=== PATIENT | male | born 1995 | race African-American/Black ===

== ENCOUNTER 2017-11-08 06:39 | Inpatient (IN) | payer OTHER ==
[2017-11-08] MEDS ORDERED: ceFAZolin 2 GM/D5W 50 ML IV BAG (J0690 PER 500MG) As Ordered (07:15)
[2017-11-08] MEDS ORDERED: LIDOCAINE 1% MDV 20ML VIAL SQ (07:15)
[2017-11-08] MEDS: METHYLENE BLUE 0.5% (5MG/ML) 10 ML AMP (PROVAYBLUE)(Q9968 PER 1MG) As Ordered (07:18)
[2017-11-08] MEDS: LR 1,000 ML IV ×4 (07:19→18:53)
[2017-11-08] MEDS: dexameTHASONE 4 MG/ML 1ML VIAL (J1100) IV ×2 (07:45→16:02)
[2017-11-08] MEDS: OXYMETAZOLINE NASAL SPRAY (AFRIN) As Ordered ×3 (07:48→09:03)
[2017-11-08] MEDS: CHLORHEXIDINE ORAL RINSE 0.12%/15ML 120ML BOTTLE As Ordered (08:30)
[2017-11-08] MEDS ORDERED: LIDOCAINE 2% INJ 100 MG/5 ML SDV (FOR ANES.) As Ordered (08:34)
[2017-11-08] MEDS ORDERED: ONDANSETRON 4MG/2ML VIAL (J2405) As Ordered (08:34)
[2017-11-08] MEDS ORDERED: REMIFENTANIL 1MG 3ML VIAL As Ordered ×3 (08:34→09:10)
[2017-11-08] MEDS ORDERED: ROCURONIUM BROMIDE 50 MG/5 ML VIAL As Ordered ×2 (08:34→09:24)
[2017-11-08] MEDS ORDERED: MIDAZOLAM INJ 2 MG/2 ML VIAL (J2250) As Ordered (08:34)
[2017-11-08] MEDS ORDERED: ePHEDrine SULFATE 25 MG/5 ML(5MG/ML) SYRINGE As Ordered (08:34)
[2017-11-08] MEDS ORDERED: fentaNYL 250 MCG/5 ML INJECTION (J3010) As Ordered (08:34)
[2017-11-08] MEDS ORDERED: PROPOFOL 200 MG/20 ML VIAL As Ordered (08:34)
[2017-11-08] MEDS ORDERED: HYDROmorphone HCL 2 MG/ML 1ML VIAL (J1170) As Ordered (08:45)
[2017-11-08] MEDS ORDERED: GLYCOPYRROLATE INJ 0.2 MG/ML 2 ML VIAL As Ordered ×2 (09:14)
[2017-11-08] MEDS ORDERED: NEOSTIGMINE 10 MG/10 ML VIAL (J2710) As Ordered (09:14)
[2017-11-08] MEDS: LIDOCAINE 2% W/ EPINEPHRINE 1.7 ML DENTAL INJ As Ordered ×2 (10:59)
[2017-11-08] MEDS ORDERED: MORPHINE 10 MG/ML 1ML VIAL (J2270) IV (11:30)
[2017-11-08] MEDS ORDERED: fentaNYL 100 MCG/2 ML INJECTION (J3010) IV (11:30)
[2017-11-08] MEDS ORDERED: ONDANSETRON 4MG/2ML VIAL (J2405) IV (11:30)
[2017-11-08] MEDS ORDERED: MORPHINE 4 MG/ML 1ML VIAL/SYRINGE (J2270) IV (11:30)
[2017-11-08] MEDS: KETOROLAC 30 MG/ML VIAL (J1885) IV ×2 (12:14→18:16)
[2017-11-08] MEDS: AMPICILLIN SOD/SULBACTAM SOD 3 GM in D5W MINI-BAG PLUS 100 ML IV ×2 (13:46→22:17)
[2017-11-08] MEDS: PSEUDOEPHEDRINE 30 MG TAB PO ×2 (13:46→18:16)
[2017-11-08] MEDS: ONDANSETRON 4MG/2ML VIAL (J2405) IV ×2 (14:49→21:00)
[2017-11-08] MEDS: PERCOCET 5MG/325MG TAB PO ×2 (14:56→22:24)
[2017-11-08] MEDS: OXYMETAZOLINE NASAL SPRAY (AFRIN) (21:01)
[2017-11-09] MEDS: dexameTHASONE 4 MG/ML 1ML VIAL (J1100) IV ×3 (00:29→16:53)
[2017-11-09] MEDS: KETOROLAC 30 MG/ML VIAL (J1885) IV ×2 (00:30→06:42)
[2017-11-09] MEDS: PSEUDOEPHEDRINE 30 MG TAB PO ×4 (00:30→18:38)
[2017-11-09] MEDS: ONDANSETRON 4MG/2ML VIAL (J2405) IV ×4 (03:13→21:17)
[2017-11-09] MEDS: LR 1,000 ML IV (03:13)
[2017-11-09] MEDS: PERCOCET 5MG/325MG TAB PO ×2 (04:42→21:18)
[2017-11-09] MEDS: AMPICILLIN SOD/SULBACTAM SOD 3 GM in D5W MINI-BAG PLUS 100 ML IV (05:28)
[2017-11-09] MEDS ORDERED: [UNRECOGNIZED DRUG - OTHER] SSP (09:00)
[2017-11-09] MEDS: OXYMETAZOLINE NASAL SPRAY (AFRIN) ×2 (09:13→21:16)
[2017-11-09] MEDS: AUGMENTIN 875 MG TAB PO ×2 (10:55→21:16)
[2017-11-09] MEDS: CHLORHEXIDINE ORAL RINSE 0.12%/15ML 120ML BOTTLE SSP ×3 (10:55→21:17)
[2017-11-09] MEDS: IBUPROFEN 800 MG TAB PO ×2 (14:56→22:49)
[2017-11-10] MEDS: PSEUDOEPHEDRINE 30 MG TAB PO ×2 (00:09→06:23)
[2017-11-10] MEDS: dexameTHASONE 4 MG/ML 1ML VIAL (J1100) IV (00:09)
[2017-11-10] MEDS: ONDANSETRON 4MG/2ML VIAL (J2405) IV (03:23)
[2017-11-10] MEDS: IBUPROFEN 800 MG TAB PO (06:23)
[2017-11-10] MEDS: CHLORHEXIDINE ORAL RINSE 0.12%/15ML 120ML BOTTLE SSP (08:41)
[2017-11-10] MEDS: OXYMETAZOLINE NASAL SPRAY (AFRIN) (08:42)
[2017-11-10] MEDS: PERCOCET 5MG/325MG TAB PO (08:47)
== END 2017-11-10 12:20 | disposition home or self-care (01) | DRG 132 ==
LOC: M OR 06:39 → M PED 11:48
PROC: 0NQR0ZZ Repair Maxilla, Open Approach (ICD-10-PCS; principal; 2017-11-08 07:30)
DX: M26.02 Maxillary hypoplasia (principal)